=== PATIENT | female | born 1935 | race Caucasian/White ===

== ENCOUNTER 2018-11-11 08:48 | Outpatient (CLI) | payer MEDICARE, OTHER, SELFPAY ==
[2018-11-11 09:34] LABS: ALT 34 U/L (12-78); AST 36 U/L (15-37); Albumin 3.7 g/dL (3.4-5.0); Alkaline Phosphatase 99 U/L (46-116); Anion Gap 8.8 mmol/L (3-11); BUN 22 mg/dL (7-18); Bilirubin, Total 1.1 mg/dL (0.2-1.0); CO2 30.2 mmol/L (21.0-32.0); CREATININE 0.75 mg/dL (0.55-1.02); Calcium 8.5 mg/dL (8.5-10.1); Chloride 102 mmol/L (98-107); Glucose 98 mg/dL (70-100); LDH 172 U/L (81-234); Potassium 4.1 mmol/L (3.5-5.1); Sodium 141 mmol/L (136-145)
[2018-11-11 09:39] LABS: Abs Immature Grans 0.01 k/cumm (0.0-0.09); Absolute Basophil Count 0.05 k/cumm (0.0-0.2); Absolute Eosinophil Count 0.12 k/cumm (0.0-0.7); Absolute Lymphocyte Count 1.12 k/cumm (1.2-3.4); Absolute Monocyte Count 0.83 k/cumm (0.11-0.7); Absolute Neutrophil Count 3.37 k/cumm (1.2-6.7); Basophils % 0.9; Eosinophils % 2.2; HCT 47.7 % (36.0-46.0); HGB 15.7 g/dL (12.0-15.5); Immature Grans % 0.2; Lymphocytes % 20.4; Mean Corp. HGB Concentration 32.9 g/dL (32.0-36.0); Mean Corpuscular Hemoglobin 32.3 pg (27.0-33.0); Mean Corpuscular Volume 98.1 fL (80-95); Mean Platelet Volume 10.9 fL (8.0-11.0); Monocytes % 15.1; Neutrophils % 61.2; Platelet Count 198 x1000/uL (130-400); RBC 4.86 m/cumm (4.00-5.20); RBC Distribution Width 13.5 % (11.7-14.6)
== END 2018-11-11 09:08 ==
PROVIDERS: PCP Nurse Practitioner; Visit Provider Internal Medicine Hematology & Oncology
DX: C88.4 Extranodal marginal zone B-cell lymphoma of mucosa-associated lymphoid tissue [MALT-lymphoma] (principal)
CPT/HCPCS: 80053; 83615; 85025

== ENCOUNTER 2019-08-18 08:26 | Outpatient (CLI) | payer MEDICARE, OTHER, SELFPAY ==
[2019-08-18 08:53] LABS: Abs Immature Grans 0.01 k/cumm (0.0-0.09); Absolute Basophil Count 0.06 k/cumm (0.0-0.2); Absolute Eosinophil Count 0.09 k/cumm (0.0-0.7); Absolute Lymphocyte Count 1.28 k/cumm (1.2-3.4); Absolute Monocyte Count 0.97 k/cumm (0.11-0.7); Absolute Neutrophil Count 4.82 k/cumm (1.2-6.7); Basophils % 0.8; Eosinophils % 1.2; HCT 46.6 % (36.0-46.0); HGB 15.3 g/dL (12.0-15.5); Immature Grans % 0.1 %; Lymphocytes % 17.7; Mean Corp. HGB Concentration 32.8 g/dL (32.0-36.0); Mean Corpuscular Hemoglobin 32.5 pg (27.0-33.0); Mean Corpuscular Volume 98.9 fL (80-95); Mean Platelet Volume 10.3 fL (8.0-11.0); Monocytes % 13.4; Neutrophils % 66.8; Platelet Count 231 x1000/uL (130-400); RBC 4.71 m/cumm (4.00-5.20); White Blood Cell Count 7.23 k/cumm (4.4-10.8)
[2019-08-18 09:10] LABS: ALT 33 U/L (14-59); AST 34 U/L (15-37); Albumin 3.7 g/dL (3.4-5.0); Alkaline Phosphatase 75 U/L (46-116); Anion Gap 5.6 mmol/L (3-11); BUN 25 mg/dL (7-18); CO2 31.4 mmol/L (21.0-32.0); Calcium 8.9 mg/dL (8.5-10.1); Chloride 102 mmol/L (98-107); Glucose 100 mg/dL (74-106); LDH 184 U/L (81-234); Potassium 4.5 mmol/L (3.5-5.1); Sodium 139 mmol/L (136-145); Total Protein 6.9 g/dL (6.4-8.2)
== END 2019-08-18 08:46 ==
PROVIDERS: PCP Nurse Practitioner; Visit Provider Internal Medicine Hematology & Oncology
DX: C88.4 Extranodal marginal zone B-cell lymphoma of mucosa-associated lymphoid tissue [MALT-lymphoma] (principal)
CPT/HCPCS: 36415; 80053; 83615; 85025

== ENCOUNTER 2022-12-25 03:22 | Outpatient (RCR) | payer MEDICARE, OTHER, SELFPAY ==
[2022-12-25] MEDS: Normal Saline Flush 10 ML SYR IVP (10:13)
[2022-12-25] MEDS: Heparin 500 UNITS/5 ML SYRINGE IV (10:13)
[2022-12-25 10:23] LABS: Abs Immature Grans 0.05 10^3/uL (0.0-0.06); Absolute Basophil Count 0.08 10^3/uL (0.0-0.2); Absolute Eosinophil Count 0.13 10^3/uL (0.0-0.7); Absolute Lymphocyte Count 0.48 10^3/uL (1.2-3.4); Absolute Neutrophil Count 7.86 10^3/uL (1.2-6.7); Basophils % 0.8; Eosinophils % 1.3; HCT 45.7 % (36.0-46.0); HGB 15.1 g/dL (11.2-15.7); Immature Grans % 0.5; Lymphocytes % 4.7; MCH 31.9 pg (27.0-33.0); MCV 97 fL (80-95); MPV 10.1 fL (8.0-11.0); Monocytes % 15.7; Platelet Count 247 10^3/uL (130-400); RBC 4.73 10^6/uL (3.93-5.22); RDW 13.2 % (11.7-14.6); RDW-SD 47.4 fL
[2022-12-25 10:52] LABS: ALT 26 U/L (14-59); AST 29 U/L (15-37); Albumin 3.7 g/dL (3.4-5.0); Alkaline Phosphatase 83 U/L (46-116); Anion Gap 8.2 mmol/L (3-11); BUN 16 mg/dL (7-18); Bilirubin, Total 0.8 mg/dL (0.2-1.0); CO2 28.8 mmol/L (21.0-32.0); CREATININE 0.7 mg/dL (0.55-1.02); Chloride 104 mmol/L (98-107); Estimated GFR 83.65 (mL/min/1.73m2); Glucose 98 mg/dL (74-106); LDH 186 U/L (81-234); Potassium 4.1 mmol/L (3.5-5.1); Sodium 141 mmol/L (136-145); Total Protein 7.3 g/dL (6.4-8.2)
[2022-12-25 11:06] LABS: Diff Comment Agrees w/ Instrument; RBC Morphology Normal
== END 2022-12-25 23:59 | disposition home or self-care (01) ==
LOC: INF 03:22
PROVIDERS: PCP Nurse Practitioner; Visit Provider Internal Medicine Hematology & Oncology
DX: C88.4 Extranodal marginal zone B-cell lymphoma of mucosa-associated lymphoid tissue [MALT-lymphoma] (principal); Z45.2 Encounter for adjustment and management of vascular access device
CPT/HCPCS: 36591; 80053; 83615; 85025

== ENCOUNTER 2023-01-22 11:00 | Outpatient (RCR) | payer MEDICARE, OTHER, SELFPAY ==
[2023-01-08] MEDS: Normal Saline Flush 10 ML SYR IVP (07:32)
[2023-01-08 07:48] LABS: Abs Immature Grans 0.02 10^3/uL (0.0-0.06); Absolute Basophil Count 0.09 10^3/uL (0.0-0.2); Absolute Eosinophil Count 0.25 10^3/uL (0.0-0.7); Absolute Lymphocyte Count 0.53 10^3/uL (1.2-3.4); Absolute Monocyte Count 1.23 10^3/uL (0.1-0.8); Absolute Neutrophil Count 4.74 10^3/uL (1.2-6.7); Basophils % 1.3; Eosinophils % 3.6; HCT 45.5 % (36.0-46.0); HGB 15.1 g/dL (11.2-15.7); Immature Grans % 0.3; Lymphocytes % 7.7; MCH 32.1 pg (27.0-33.0); MCHC 33.2 % (32.0-36.0); MCV 97 fL (80-95); Monocytes % 17.9; Neutrophils % 69.2; Platelet Count 242 10^3/uL (130-400); RDW 13.3 % (11.7-14.6); RDW-SD 48.3 fL; WBC 6.86 10^3/uL (4.4-10.8)
[2023-01-08 08:00] LABS: ALT 25 U/L (14-59); AST 26 U/L (15-37); Albumin 3.5 g/dL (3.4-5.0); Alkaline Phosphatase 74 U/L (46-116); Anion Gap 7.7 mmol/L (3-11); BUN 21 mg/dL (7-18); Bilirubin, Total 0.8 mg/dL (0.2-1.0); CO2 29.3 mmol/L (21.0-32.0); CREATININE 0.8 mg/dL (0.55-1.02); Calcium 8.7 mg/dL (8.5-10.1); Chloride 103 mmol/L (98-107); Estimated GFR 71.27 (mL/min/1.73m2); Glucose 115 mg/dL (74-106); LDH 167 U/L (81-234); Sodium 140 mmol/L (136-145); Total Protein 7.2 g/dL (6.4-8.2)
[2023-01-22] MEDS: Normal Saline Flush 10 ML SYR IVP (11:27)
[2023-01-22] MEDS: Heparin 500 UNITS/5 ML SYRINGE IV (11:28)
[2023-01-22 12:17] LABS: Abs Immature Grans 0.03 10^3/uL (0.0-0.06); Absolute Basophil Count 0.07 10^3/uL (0.0-0.2); Absolute Eosinophil Count 0.24 10^3/uL (0.0-0.7); Absolute Lymphocyte Count 0.35 10^3/uL (1.2-3.4); Absolute Monocyte Count 1.22 10^3/uL (0.1-0.8); Absolute Neutrophil Count 6.17 10^3/uL (1.2-6.7); Basophils % 0.9; HCT 45.6 % (36.0-46.0); HGB 15.2 g/dL (11.2-15.7); Immature Grans % 0.4; Lymphocytes % 4.3; MCH 32.2 pg (27.0-33.0); MCHC 33.3 % (32.0-36.0); MCV 97 fL (80-95); Monocytes % 15.1; Neutrophils % 76.3; Platelet Count 231 10^3/uL (130-400); RBC 4.72 10^6/uL (3.93-5.22); RDW 13.5 % (11.7-14.6); RDW-SD 47.8 fL; WBC 8.08 10^3/uL (4.4-10.8)
[2023-01-22 12:34] LABS: Albumin 3.6 g/dL (3.4-5.0); BUN 24 mg/dL (7-18); Bilirubin, Total 1.1 mg/dL (0.2-1.0); Glucose 144 mg/dL (74-106); Total Protein 7.2 g/dL (6.4-8.2)
[2023-01-22 12:54] LABS: ALT 26 U/L (14-59); AST 29 U/L (15-37); Alkaline Phosphatase 70 U/L (46-116); Anion Gap 8.2 mmol/L (3-11); CO2 29.8 mmol/L (21.0-32.0); CREATININE 0.8 mg/dL (0.55-1.02); Chloride 100 mmol/L (98-107); Estimated GFR 71.27 (mL/min/1.73m2); LDH 217 U/L (81-234); Potassium 3.6 mmol/L (3.5-5.1); Sodium 138 mmol/L (136-145)
== END 2023-01-24 23:59 | disposition home or self-care (01) ==
LOC: INF 11:00
PROVIDERS: PCP Nurse Practitioner; Visit Provider Internal Medicine Hematology & Oncology
DX: C88.4 Extranodal marginal zone B-cell lymphoma of mucosa-associated lymphoid tissue [MALT-lymphoma] (principal); Z45.2 Encounter for adjustment and management of vascular access device
CPT/HCPCS: 36591; 80053; 83615; 85025

== ENCOUNTER 2023-02-05 02:30 | Outpatient (RCR) | payer MEDICARE, OTHER, SELFPAY ==
[2023-02-05] MEDS: Normal Saline Flush 10 ML SYR IVP (08:07)
[2023-02-05 08:16] LABS: Abs Immature Grans 0.02 10^3/uL (0.0-0.06); Absolute Basophil Count 0.09 10^3/uL (0.0-0.2); Absolute Eosinophil Count 0.35 10^3/uL (0.0-0.7); Absolute Lymphocyte Count 0.45 10^3/uL (1.2-3.4); Absolute Monocyte Count 1.14 10^3/uL (0.1-0.8); Absolute Neutrophil Count 4.68 10^3/uL (1.2-6.7); Basophils % 1.3; Eosinophils % 5.2; HCT 47.2 % (36.0-46.0); HGB 15.6 g/dL (11.2-15.7); Immature Grans % 0.3; Lymphocytes % 6.7; MCH 32.4 pg (27.0-33.0); MCHC 33.1 % (32.0-36.0); MCV 98 fL (80-95); MPV 10.1 fL (8.0-11.0); Monocytes % 16.9; Neutrophils % 69.6; Platelet Count 217 10^3/uL (130-400); RBC 4.82 10^6/uL (3.93-5.22); RDW 13.7 % (11.7-14.6); WBC 6.73 10^3/uL (4.4-10.8)
[2023-02-05 08:30] LABS: ALT 22 U/L (14-59); AST 29 U/L (15-37); Albumin 3.6 g/dL (3.4-5.0); Alkaline Phosphatase 69 U/L (46-116); BUN 17 mg/dL (7-18); Bilirubin, Total 0.9 mg/dL (0.2-1.0); Chloride 103 mmol/L (98-107); Estimated GFR 54.53 (mL/min/1.73m2); Glucose 137 mg/dL (74-106); LDH 165 U/L (81-234); Potassium 4.1 mmol/L (3.5-5.1); Sodium 140 mmol/L (136-145); Total Protein 6.9 g/dL (6.4-8.2)
== END 2023-02-24 23:59 | disposition home or self-care (01) ==
LOC: INF 02:30
PROVIDERS: PCP Nurse Practitioner; Visit Provider Internal Medicine Hematology & Oncology
DX: C88.4 Extranodal marginal zone B-cell lymphoma of mucosa-associated lymphoid tissue [MALT-lymphoma] (principal); Z45.2 Encounter for adjustment and management of vascular access device
CPT/HCPCS: 36591; 80053; 83615; 85025

== ENCOUNTER 2023-03-05 08:51 | Outpatient (RCR) | payer MEDICARE, OTHER, SELFPAY ==
[2023-03-05] MEDS: Normal Saline Flush 10 ML SYR IVP (09:04)
[2023-03-05 09:30] LABS: Abs Immature Grans 0.01 10^3/uL (0.0-0.06); Absolute Basophil Count 0.07 10^3/uL (0.0-0.2); Absolute Eosinophil Count 0.06 10^3/uL (0.0-0.7); Absolute Lymphocyte Count 0.35 10^3/uL (1.2-3.4); Absolute Monocyte Count 1.49 10^3/uL (0.1-0.8); Absolute Neutrophil Count 3.09 10^3/uL (1.2-6.7); Basophils % 1.4; Eosinophils % 1.2; HCT 47.2 % (36.0-46.0); Immature Grans % 0.2; Lymphocytes % 6.9; MCH 33.5 pg (27.0-33.0); MCHC 33.9 % (32.0-36.0); MCV 99 fL (80-95); MPV 10.9 fL (8.0-11.0); Monocytes % 29.4; Neutrophils % 60.9; Platelet Count 178 10^3/uL (130-400); RBC 4.78 10^6/uL (3.93-5.22); RDW 14.3 % (11.7-14.6); RDW-SD 52.6 fL; WBC 5.07 10^3/uL (4.4-10.8)
[2023-03-05 09:51] LABS: ALT 27 U/L (14-59); AST 36 U/L (15-37); Albumin 3.7 g/dL (3.4-5.0); Alkaline Phosphatase 71 U/L (46-116); Anion Gap 7.7 mmol/L (3-11); BUN 12 mg/dL (7-18); Bilirubin, Total 0.8 mg/dL (0.2-1.0); CO2 30.3 mmol/L (21.0-32.0); CREATININE 0.8 mg/dL (0.55-1.02); Calcium 9.1 mg/dL (8.5-10.1); Chloride 106 mmol/L (98-107); Estimated GFR 71.27 (mL/min/1.73m2); Glucose 107 mg/dL (74-106); LDH 188 U/L (81-234); Sodium 144 mmol/L (136-145); Total Protein 7.1 g/dL (6.4-8.2)
== END 2023-03-27 23:59 | disposition home or self-care (01) ==
LOC: INF 08:51
PROVIDERS: PCP Nurse Practitioner; Visit Provider Internal Medicine Hematology & Oncology
DX: C88.4 Extranodal marginal zone B-cell lymphoma of mucosa-associated lymphoid tissue [MALT-lymphoma] (principal); Z45.2 Encounter for adjustment and management of vascular access device
CPT/HCPCS: 36591; 80053; 83615; 85025

== ENCOUNTER 2023-04-23 02:47 | Outpatient (CLI) | payer MEDICARE, OTHER, SELFPAY ==
[2023-04-23 09:01] LABS: Abs Immature Grans 0.03 10^3/uL (0.0-0.06); Absolute Eosinophil Count 0.11 10^3/uL (0.0-0.7); Absolute Lymphocyte Count 0.54 10^3/uL (1.2-3.4); Absolute Monocyte Count 1.01 10^3/uL (0.1-0.8); Absolute Neutrophil Count 5.59 10^3/uL (1.2-6.7); Basophils % 1.4; Eosinophils % 1.5; HCT 49.4 % (36.0-46.0); HGB 16.3 g/dL (11.2-15.7); Immature Grans % 0.4; Lymphocytes % 7.3; MCV 100 fL (80-95); MPV 9.8 fL (8.0-11.0); Monocytes % 13.7; Neutrophils % 75.7; Platelet Count 219 10^3/uL (130-400); RBC 4.94 10^6/uL (3.93-5.22); RDW 12.7 % (11.7-14.6); RDW-SD 47.4 fL; WBC 7.38 10^3/uL (4.4-10.8)
[2023-04-23 09:17] LABS: ALT 29 U/L (14-59); AST 37 U/L (15-37); Albumin 3.8 g/dL (3.4-5.0); Alkaline Phosphatase 79 U/L (46-116); Anion Gap 8.1 mmol/L (3-11); BUN 21 mg/dL (7-18); Bilirubin, Total 0.9 mg/dL (0.2-1.0); CO2 28.9 mmol/L (21.0-32.0); CREATININE 0.9 mg/dL (0.55-1.02); Calcium 9.7 mg/dL (8.5-10.1); Chloride 100 mmol/L (98-107); Estimated GFR 61.87 (mL/min/1.73m2); Glucose 149 mg/dL (74-106); LDH 176 U/L (81-234); Potassium 4.2 mmol/L (3.5-5.1); Sodium 137 mmol/L (136-145); Total Protein 7.5 g/dL (6.4-8.2)
[2023-04-24 15:08] LABS: Albumin 59.9 % (55.8-66.1); Albumin g/dL 4.3 g/dL (3.6-5.2); Comment (See Note); Total Protein 7.1 g/dL (6.3-8.2)
[2023-06-06 15:54] LABS: Immunotyping, Serum (See Note)
== END 2023-04-23 02:48 | disposition home or self-care (01) ==
LOC: LBO 02:49
PROVIDERS: Visit Provider Internal Medicine Hematology & Oncology
DX: D47.2 Monoclonal gammopathy (principal); C88.4 Extranodal marginal zone B-cell lymphoma of mucosa-associated lymphoid tissue [MALT-lymphoma]
CPT/HCPCS: 36415; 80053; 83615; 84165; 85025; 86320

== ENCOUNTER 2023-07-15 10:33 | Outpatient (CLI) | payer MEDICARE, SELFPAY ==
[2023-07-15 09:39] LABS: Abs Immature Grans 0.02 10^3/uL (0.0-0.06); Absolute Basophil Count 0.09 10^3/uL (0.0-0.2); Absolute Eosinophil Count 0.15 10^3/uL (0.0-0.7); Absolute Monocyte Count 0.94 10^3/uL (0.1-0.8); Absolute Neutrophil Count 5.67 10^3/uL (1.2-6.7); Basophils % 1.2; HCT 47.1 % (36.0-46.0); HGB 15.7 g/dL (11.2-15.7); Immature Grans % 0.3; MCH 33.3 pg (27.0-33.0); MCHC 33.3 % (32.0-36.0); MCV 100 fL (80-95); MPV 10.1 fL (8.0-11.0); Monocytes % 12.6; Neutrophils % 75.9; Platelet Count 255 10^3/uL (130-400); RBC 4.71 10^6/uL (3.93-5.22); RDW 12.7 % (11.7-14.6); RDW-SD 47.4 fL; WBC 7.47 10^3/uL (4.4-10.8)
[2023-07-15 09:55] LABS: ALT 27 U/L (14-59); AST 36 U/L (15-37); Albumin 4.1 g/dL (3.4-5.0); Alkaline Phosphatase 80 U/L (46-116); Anion Gap 9.1 mmol/L (3-11); BUN 20 mg/dL (7-18); Bilirubin, Total 1.4 mg/dL (0.2-1.0); CO2 28.9 mmol/L (21.0-32.0); CREATININE 0.9 mg/dL (0.55-1.02); Calcium 9.6 mg/dL (8.5-10.1); Chloride 101 mmol/L (98-107); Estimated GFR 61.87 (mL/min/1.73m2); Glucose 130 mg/dL (74-106); LDH 201 U/L (81-234); Sodium 139 mmol/L (136-145); Total Protein 7.7 g/dL (6.4-8.2)
[2023-07-16 10:21] LABS: IgA 257 mg/dL (85-499); IgG 807 mg/dL (610-1616); IgM 192 mg/dL (35-242)
[2023-07-16 16:31] LABS: Albumin 59.2 % (55.8-66.1); Albumin g/dL 4.4 g/dL (3.6-5.2); Comment (See Note); Total Protein 7.5 g/dL (6.3-8.2)
[2023-07-17 08:58] LABS: Immunotyping, Serum (See Note)
== END 2023-07-15 10:34 | disposition home or self-care (01) ==
LOC: LBO 10:33
PROVIDERS: PCP Nurse Practitioner; Visit Provider Nurse Practitioner Adult Health
DX: C88.4 Extranodal marginal zone B-cell lymphoma of mucosa-associated lymphoid tissue [MALT-lymphoma] (principal); D47.2 Monoclonal gammopathy
CPT/HCPCS: 36415; 80053; 82784; 83615; 84165; 85025; 86320